=== PATIENT | male | born 1990 | race Two or more races ===

== ENCOUNTER 2016-03-23 19:00 | Emergency (ER) | payer SELFPAY ==
[2016-03-23] MEDS ORDERED: ONDANSETRON 4 MG TAB.RAPDIS PO ONE (19:10)
[2016-03-23] MEDS ORDERED: ACETAMINOPHEN 325 MG TABLET PO ONE (19:10)
--- NOTE | 2016-03-23 19:11 | ER Document Report ---
ED Medical Screen (RME) - General Stated Complaint: VOMITING BLOOD,BODY ACHES Mode of Arrival: Ambulatory Information source: Patient Notes: Patient reports nausea and vomiting that started today. Patient is concerned may have had blood in it. Patient complains of generalized body aches. Patient does report chills. Patient does complain of abdominal pain due to vomiting. She does report sick contacts at home. hx: None I have greeted and performed a rapid initial assessment of this patient. A comprehensive ED assessment and evaluation of the patient, analysis of test results and completion of the medical decision making process will be conducted by additional ED providers. TRAVEL OUTSIDE OF THE [place] IN LAST 30 DAYS: No - Related Data Allergies/Adverse Reactions: No Known Allergies Allergy (Verified 09/08/14 00:20) Past Medical History Past Surgical History: Reports: Hx Orthopedic Surgery - right ankle screws - Immunizations Immunizations up to date: Yes Hx Diphtheria, Pertussis, Tetanus Vaccination: Yes Physical Exam - Vital signs Vitals: Temp Pulse Resp BP Pulse Ox 100.9 F H 128 H 18 159/99 H 95 03/23/16 19:07 03/23/16 19:07 03/23/16 19:07 03/23/16 19:07 03/23/16 19:07 - Abdominal Tenderness: Tender - Generalized abdomen Course - Vital Signs Vital signs: Temp Pulse Resp BP Pulse Ox 100.9 F H 128 H 18 159/99 H 95 03/23/16 19:07 03/23/16 19:07 03/23/16 19:07 03/23/16 19:07 03/23/16 19:07
[2016-03-23 19:59] LABS: ABSOLUTE BASOPHILS # (AUTO) 0.1 10^3/uL (0.0-0.2); ABSOLUTE EOSINOPHILS # (AUTO) 0.1 10^3/uL (0.0-0.6); ABSOLUTE LYMPHOCYTES (AUTO) 0.6 10^3/uL (0.5-4.7); ABSOLUTE NEUT (AUTO) 7.6 10^3/uL (1.7-8.2); BASOPHILS % (AUTO) 0.7 % (0-2); EOSINOPHILS % (AUTO) 1.3 % (0-6); HEMATOCRIT 48.6 % (37.9-51.0); HEMOGLOBIN 16.9 g/dL (13.5-17.0); HGB HCT DIFFERENCE 2.1; LYMPHOCYTES % (AUTO) 6.5 % (13-45); MEAN CORPUSCULAR HEMOGLOBIN 30.4 pg (27.0-33.4); MEAN CORPUSCULAR HGB CONC 34.8 g/dL (32.0-36.0); MEAN CORPUSCULAR VOLUME 87 fl (80-97); RED BLOOD COUNT 5.56 10^6/uL (4.35-5.55); RED CELL DISTRIBUTION WIDTH 13.9 % (11.5-14.0); SEGMENTED NEUTROPHILS % (AUTO) 80.5 % (42-78); WHITE BLOOD COUNT 9.5 10^3/uL (4.0-10.5)
[2016-03-23 20:16] LABS: ALANINE AMINOTRANSFERASE 36 U/L (21-72); ALBUMIN 5.1 g/dL (3.5-5.0); ALKALINE PHOSPHATASE 95 U/L (38-126); ANION GAP 13 (5-19); ASPARTATE AMINO TRANSFERASE 27 U/L (17-59); BILIRUBIN,TOTAL 0.8 mg/dL (0.2-1.3); BLOOD UREA NITROGEN 22 mg/dL (7-20); CALCIUM 10.2 mg/dL (8.4-10.2); CARBON DIOXIDE 29 mmol/L (22-30); CHLORIDE 100 mmol/L (98-107); CREATININE RESULT 1.04 mg/dL (0.52-1.25); GLUCOSE 99 mg/dL (75-110); LIPASE 52.6 U/L (23-300); POTASSIUM 4.2 mmol/L (3.6-5.0); SODIUM 142.2 mmol/L (137-145)
[2016-03-23 20:41] LABS: APPEARANCE,URINE CLEAR; BILIRUBIN,URINE NEGATIVE (NEGATIVE); GLUCOSE, URINE NEGATIVE (NEGATIVE); KETONES,URINE NEGATIVE (NEGATIVE); LEUKOCYTE ESTERASE,URINE NEGATIVE (NEGATIVE); NITRITE,URINE NEGATIVE (NEGATIVE); PROTEIN,URINE 30 mg/dL (NEGATIVE); URINE SPECIFIC GRAVITY 1.018; UROBILINOGEN,URINE NEGATIVE mg/dL (<2.0)
[2016-03-23] MEDS ORDERED: METOCLOPRAMIDE HCL INJ/PF 10 MG/2 ML SDV IV ONE (22:33)
[2016-03-23] MEDS ORDERED: PANTOPRAZOLE SODIUM 40 MG VIAL IV ONE (22:33)
[2016-03-23] MEDS ORDERED: NORMAL SALINE 1000 ML 1,000 ML IV PRN (22:33)
--- NOTE | 2016-03-23 22:37 | ER Document Report ---
ED GI/ - General Chief Complaint: vomiting, abdominal pain Stated Complaint: VOMITING BLOOD,BODY ACHES Time seen by provider: 22:34 Mode of Arrival: Ambulatory Information source: Patient TRAVEL OUTSIDE OF THE [place] IN LAST 30 DAYS: No - HPI Patient complains to provider of: Abdominal pain, Vomiting Onset: This morning Timing/Duration: Sudden Quality of pain: Achy, Cramping Severity at maximum: Moderate Severity in ED: Moderate Pain Level: 3 Location: Epigastric Associated symptoms: Blood in emesis, Chills, Fever, Nausea, Vomiting Exacerbated by: Denies Relieved by: Denies Similar symptoms previously: Yes Recently seen / treated by doctor: No Notes: 03/23/16 22:34 Patient is a 25-year-old male with no reported past medical history, not currently on any medications, who presents to the emergency room complaining of body aches that started yesterday, vomiting that started this morning, states he initially vomited some black colored stuff, and then shortly thereafter he started vomiting some blood, patient states he had one episode of similar symptoms in April 2014, he was seen in an outside hospital and had a colonoscopy done but he never followed up for the results, there was some concern that he may of had colitis according to patient's, he continues to have some nausea at time of my evaluation, reports hot and cold chills, no diarrhea, had a normal bowel movement this morning, patient does report that his daughter recently had vomiting a few days ago, patient does admit that he is a heavy drinker on a daily basis and occasionally smokes - Related Data Allergies/Adverse Reactions: No Known Allergies Allergy (Verified 09/08/14 00:20) Past Medical History - General Information source: Patient - Social History Smoking Status: Unknown if Ever Smoked Family History: Reviewed & Not Pertinent Patient has suicidal ideation: No Patient has homicidal ideation: No Renal/ Medical History: Denies: Hx Peritoneal Dialysis Past Surgical History: Reports: Hx Orthopedic Surgery - right ankle screws - Immunizations Immunizations up to date: Yes Hx Diphtheria, Pertussis, Tetanus Vaccination: Yes Review of Systems - Review of Systems Constitutional: Chills, Fever EENT: No symptoms reported Cardiovascular: No symptoms reported Respiratory: No symptoms reported Gastrointestinal: See HPI Genitourinary: No symptoms reported Male Genitourinary: No symptoms reported Musculoskeletal: No symptoms reported Skin: No symptoms reported Hematologic/Lymphatic: No symptoms reported Neurological/Psychological: No symptoms reported -: Yes All other systems reviewed and negative Physical Exam - Vital signs Vitals: Temp Pulse Resp BP Pulse Ox 100.9 F H 128 H 18 159/99 H 95 03/23/16 19:07 03/23/16 19:07 03/23/16 19:07 03/23/16 19:07 03/23/16 19:07 Interpretation: Hypertensive, Tachycardic, Febrile - General General appearance: Appears well, Alert - HEENT Head: Normocephalic, Atraumatic Eyes: Normal Pupils: PERRL - Respiratory Respiratory status: No respiratory distress Chest status: Nontender Breath sounds: Normal Chest palpation: Normal - Cardiovascular Rhythm: Regular Heart sounds: Normal auscultation Murmur: No - Abdominal Inspection: Normal Distension: No distension Bowel sounds: Normal Tenderness: Nontender Organomegaly: No organomegaly - Back Back: Normal, Nontender - Extremities General upper extremity: Normal inspection, Nontender, Normal color, Normal ROM , Normal temperature General lower extremity: Normal inspection, Nontender, Normal color, Normal ROM , Normal temperature, Normal weight bearing. No: Dewey's sign - Neurological Neuro grossly intact: Yes Cognition: Normal Orientation: AAOx4 [place] Coma Scale Eye Opening: Spontaneous [place] Coma Scale Verbal: Oriented [place] Coma Scale Motor: Obeys Commands [place] Coma Scale Total: 15 Speech: Normal Motor strength normal: LUE, RUE, LLE, RLE Sensory: Normal - Psychological Associated symptoms: Normal affect, Normal mood - Skin Skin Temperature: Warm Skin Moisture: Dry Skin Color: Normal Course - Re-evaluation Re-evalutation: 03/24/16 03:09 Lab and imaging findings were discussed with patient at bedside which are unremarkable, he is tolerating by mouth intake, and will be discharged with a Zofran dose pack as well as information for follow-up, advised to return if symptoms worsen, patient acknowledges understanding and agreement with this plan - Vital Signs Vital signs: Temp Pulse Resp BP Pulse Ox 99.2 F 91 16 140/71 H 97 03/24/16 02:15 03/24/16 01:12 03/24/16 01:12 03/24/16 01:12 03/24/16 01:12 - Laboratory Result Diagrams: 03/23/16 19:36 03/23/16 19:36 Laboratory results interpreted by me: 02/07/17 02/07/17 02/07/17 19:36 19:36 19:36 RBC 5.56 H Seg Neutrophils % 80.5 H Lymphocytes % 6.5 L BUN 22 H Albumin 5.1 H Urine Protein 30 H - Diagnostic Test Radiology reviewed: Image reviewed, Reports reviewed Discharge - Discharge Clinical Impression: Nausea and vomiting Qualifiers: Vomiting type: unspecified Vomiting Intractability: non-intractable Qualified Code(s): R11.2 - Nausea with vomiting, unspecified Condition: Stable Disposition: HOME, SELF-CARE Instructions: Intravenous (IV) Fluids ([facility]), Vomiting ([facility]), Viral Syndrome ( [facility]), Antinausea Medication ([facility]) Additional Instructions: Follow up with your primary care provider in one to 2 days. Return to the emergency room immediately if symptoms worsen or any additional concerns. Prescriptions: Famotidine [Pepcid 20 mg Tablet] 20 mg PO BID #60 tablet Ondansetron [Zofran Odt 4 mg Tablet] 1 - 2 tab PO Q4H #10 tab.rapdis Forms: Return to Work
[2016-03-24] MEDS ORDERED: ONDANSETRON HCL INJ/PF 4 MG/2 ML SDV IV ONE (01:33)
[2016-03-24] MEDS ORDERED: ONDANSETRON ODT 4 MG TAB (6 TAB/DSPK) PO PRN (03:12)
[2016-03-24 03:45] VITALS: BP 129/74
== END 2016-03-24 03:45 | disposition home or self-care (01) ==
LOC: ER 19:00
DX: R11.2 Nausea with vomiting, unspecified (principal); R10.9 Unspecified abdominal pain; R52 Pain, unspecified; F17.210 Nicotine dependence, cigarettes, uncomplicated
CPT/HCPCS: 99284; 96361; 96374; 96375; 36415; 87070; 87880; 80307; 83690; 85025; 80053; 81001; 74177; S0119; J2765; S0164; J2405; J7030